=== PATIENT | female | born 1930 | race Caucasian/White ===

== ENCOUNTER 2017-08-17 08:48 | Inpatient (IN) | payer MEDICARE, OTHER ==
[2017-08-17 09:45] LABS: #Eosinphils 0.2 thou/uL (0.0-0.7); #Lymphocytes 1.1 thou/uL (1.20-3.40); #Neutrophils 7.6 thou/uL (1.40-6.50); %Basophils 0.5 % (0.0-1.0); %Eosinophils 1.9 % (0.0-10.0); %Lymphocytes 11.5 % (21.0-51.0); %Monocytes 9.8 % (0.0-10.0); Hematocrit 37.8 % (36.0-47.0); Mean Platelet Volume 7.5 fL (7.4-10.4); Red Blood Cell (RBC) Count 3.97 mill/uL (4.20-5.40)
[2017-08-17] MEDS ORDERED: Acetaminophen 325 MG TAB ONE (09:46)
[2017-08-17 09:51] LABS: PTT 32.6 SEC (22.9-36.1); Prothrombin Time 13.9 SEC (12.0-14.7)
[2017-08-17 10:28] LABS: ALT (SGPT) 14 U/L (8-55); AST (SGOT) 18 U/L (5-34); Alkaline Phosphatase 59 U/L (40-150); Anion Gap 12 mmol/L (10-20); BUN (Urea Nitrogen) 11 mg/dL (9.8-20.1); Bilirubin, Total 0.5 mg/dL (0.2-1.2); CK (CPK) 41 U/L (29-168); Calc. Creatinine Clearance 0 mL/min (70-130); Calcium 9.3 mg/dL (7.8-10.44); Carbon Dioxide 25 mmol/L (23-31); Chloride 103 mmol/L (98-107); Estimated GFR-MDRD 71; Globulin 3.2 g/dL (2.4-3.5); Protein, Total 6.5 g/dL (6.0-8.3)
[2017-08-17 10:32] LABS: Troponin I Less than 0.010 ng/mL (< 0.028)
[2017-08-17] MEDS ORDERED: Morphine Sulfate 2 MG/ML SYRINGE ONE (10:36)
[2017-08-17] MEDS ORDERED: cefTRIAXone\\ROCEPHIN 1 GM VIAL ONE (10:36)
--- NOTE | 2017-08-17 10:50 | RAD ---
2 VIEWS CHEST: Date: 08/17/17 COMPARISON: 11/13/15. HISTORY: Upper respiratory infection and chest pain. FINDINGS: Two views of the chest show normal sized cardiomediastinal silhouette. There is no evidence of conso lidation, mass, or pleural effusion. The bones are unremarkable. IMPRESSION: No evidence of acute cardiopulmonary disease. POS: [facility]
[2017-08-17 10:56] LABS: Bilirubin Negative (Negative); Blood, Urine Negative (Negative); Glucose, Urine (Dipstick) 250 mg/dL (Negative); Ketone, Urine Negative (Negative); Nitrite Negative (Negative); Protein, Urine (Dipstick) Negative (Neg-Trace); Urobilinogen 0.2 mg/dL (0.2-1.0)
[2017-08-17] MEDS ORDERED: Sodium Chloride 0.9% 100 ML ONE (10:57)
[2017-08-17 10:59] LABS: Bacteria/HPF 4+ HPF (None Seen); RBC/HPF 0-3 HPF (0-3); Squamous Epithelial 0-3 HPF (0-3)
[2017-08-17 11:02] LABS: Hyaline Casts/LPF 0-3 HYALINE CAST LPF (0-3 Hyaline)
--- NOTE | 2017-08-17 12:25 | CT ---
CT ANGIOGRAM OF THE CHEST: Date: 08/17/17 COMPARISON: None. HISTORY: 86-year-old female with rib pain and chest pain, low grade fever, with congestion and projective cou gh, assess for pulmonary embolism. TECHNIQUE: Serial axial CT imaging at 2.5 mm intervals from thoracic inlet through upper abdomen with IV contra st using a CT angiogram protocol. Coronal and oblique sagittal 3D reformatted imaging obtained. FINDINGS: No axillary lymphadenopathy. Small pretracheal and subcarinal lymph nodes noted. Evaluation of upper abdomen demonstrates scattered atherosclerotic calcification of the abdominal aorta and its branche s. Cholecystectomy clips noted. Tiny right pleural effusion. No left pleural effusion. No pneumothor ax seen on either side. There is atherosclerotic calcification of the aortic arch and descending thoracic aorta. Scattered coronary arterial calcification noted on the left. No filling defect is seen in the pulmonary arterial trunk or main pulmonary artery on either side. No discrete filling defect is identified within the pulmonary arterial vasculature on either side to suggest the presence of acute pulmonary embolism. There is a focal area of pulmonary parenchymal opacity within the posterior aspect of the right uppe r lobe on image 30, consistent with a focal area of partial consolidation of right upper lobe. Infer ior and lateral to this are reticulonodular opacities involving the right upper lobe. There is an area of focal reticular nodular density noted within the inferior medial aspect of the r ight upper lobe. There is minimal reticular nodular opacity also noted within right lower lobe on im age 80. There is a small peripheral area of focal opacity in the left lung apex posteromedially on image 17. There is a small focal area of peripheral opacity within the superior segment left lower lobe media lly. Osseous structures demonstrate no acute findings. IMPRESSION: 1. No evidence for acute pulmonary embolism. 2. Significant reticular nodular opacity noted in right upper lobe and right middle lobe with christina tional subtle areas of pulmonary parenchymal opacity within the left lung and the right lower lobe. Trace right pleural effusion. Findings are most consistent with infectious pneumonitis. Follow-up im aging of the chest following treatment is recommended to document resolution. POS: [facility]
[2017-08-17] MEDS ORDERED: Loperamide HCl 2 MG CAP PO PRN (13:42)
[2017-08-17] MEDS ORDERED: Ondansetron HCl/PF 4 MG/2 ML Vial IVP PRN (13:42)
[2017-08-17] MEDS ORDERED: cefTRIAXone\\ROCEPHIN 1 GM in Sodium Chloride 0.9% 100 ML IVPB SCH (13:45)
[2017-08-17] MEDS ORDERED: Azithromycin 500 MG in Sodium Chloride 0.9% 250 ML 250 ML IVPB SCH (14:00)
--- NOTE | 2017-08-17 14:04 | PDOC.EVN ---
Event Note - Event Note Event Note: H&P: [id number] #RUL/RML CAP with right-sided pleurisy (began as URI dx'ed oupt 1wk prior to admission with failed outpt PO abx) * Emperic Abx: Ceftriaxone and Azithromycin * Blood cxs * Urine legionella Ag * Urine strep Ag * monitor pulse ox - O2 prn * prn analgesics * check labs in AM #HHT * avoid ASA and NSAIDs #DM * SSI * f/u accu checks #HTN * monitor BP and HR closely #Physical Debility * PT/OT Dispo: Admit to 4th floor.
[2017-08-17] MEDS ORDERED: Dextrose 50% Abboject 50 ML SYRINGE SLOW IVP PRN (14:06)
[2017-08-17] MEDS ORDERED: HumaLOG 300 UNITS/3 ML VIAL SC PRN (14:06)
[2017-08-17] MEDS ORDERED: PROVENTIL INHALER 6.7 G (200 INHALATIONS) INH PRN (14:06)
[2017-08-17] MEDS ORDERED: Dextrose 5% in Water 1,000 ML IV PRN (14:06)
[2017-08-17 14:12] LABS: Troponin I 0.012 ng/mL (< 0.028)
[2017-08-17] MEDS: Acetaminophen 325 MG TAB PO PRN ×2 (15:08→21:04)
[2017-08-17] MEDS: Morphine Sulfate 2 MG/ML SYRINGE SLOW IVP PRN ×2 (16:11→20:55)
[2017-08-17 17:22] LABS: Troponin I 0.022 ng/mL (< 0.028)
[2017-08-17 18:09] LABS: LegU Control Bar Appear? YES (CONTROL BAR); LegionellaU Control Bkground? CLEAR/WHITE (CLR/WHITE); Strp pneuU Control Background? CLEAR/WHITE (CLR/WHITE); Strp pneumo Control Bar Appear YES (CONTROL BAR)
--- NOTE | 2017-08-17 18:24 | HP ---
DATE OF ADMISSION: 08/17/2017 at 1:55 p.m. CHIEF COMPLAINT: Right-sided chest pain. HISTORY OF PRESENT ILLNESS: This is a very pleasant 86-year-old female who presented to her primary care physician a week ago on 08/11/2017 at which time she was diagnosed with an upper respiratory t ract infection for which she was given Z-Surjit. The patient reports that her chest pain worsened over the course of the week and she has had trouble taking a deep breath as this is caused sharp pleurit ic-type pain. She also reports a downs/green cough with a low-grade fever of 99 degrees at home and also complains of congestion. Patient denies any nausea, vomiting, or diaphoresis. PAST MEDICAL HISTORY: 1. Hereditary hemorrhagic telangiectasias. 2. Breast cancer, diagnosed in 2014, on tamoxifen, and status post right-sided mastectomy. 3. Diabetes mellitus. 4. Hyperlipidemia. 5. Hypertension. PAST SURGICAL HISTORY: 1. Appendectomy. 2. Cholecystectomy. 3. Hernia repair. 4. Hysterectomy. 5. Right mastectomy for history of breast cancer. 6. Tonsillectomy. FAMILY HISTORY: Reviewed and noncontributory to the presenting illness. SOCIAL HISTORY: The patient denies any tobacco, alcohol, or illicit drug use. ALLERGIES: Reviewed. Please refer to the chart for details. MEDICATIONS: Reviewed. Please refer to the chart for details. PHYSICAL EXAMINATION: VITAL SIGNS: Temperature 97.6, pulse 85, respirations 24, 95% on room air, blood pressure 134/58. GENERAL: The patient was lying comfortably in bed when I entered the room, in no acute distress. HEENT: Normocephalic, atraumatic. NECK: Supple. No rigidity, no masses. LYMPH NODES: No cervical or supraclavicular lymphadenopathy. CARDIOVASCULAR: S1 and S2 audible with regular rate and rhythm. LUNGS: Notable for right upper lobe and right middle lobe rhonchi and diminished breath sounds at t he bases with no wheezing and symmetric expansion with inhalation. ABDOMEN: Soft, nontender, positive bowel sounds. No guarding, rebound, or rigidity. GENITOURINARY: No CVA tenderness bilaterally. No suprapubic tenderness either. MUSCULOSKELETAL: No calf tenderness bilaterally. EXTREMITIES: No clubbing or cyanosis of the extremities. PSYCHIATRIC: Appropriate, cooperative. NEUROLOGIC: Alert and oriented x3, answering questions appropriately with judgment intact. SKIN: Warm, dry with moist mucous membranes. LABORATORY AND IMAGING: Reviewed. Please refer to the chart for details. ASSESSMENT AND PLAN: This is a very pleasant 86-year-old female, presenting with right pleurisy. 1. Right-sided multilobar pneumonia including the upper and right middle lobe with subsequent pleur itic chest pain and shallow breathing secondary to pain. We will start IV ceftriaxone and azithromy jhonny for community-acquired pneumonia, which has likely progressed from her upper respiratory tract i nfection, which was diagnosed last week with her PCP. We will check urine Legionella and streptococ hue antigens. Check blood cultures and urine culture. We will provide breathing treatment as lamberto cadet. Monitor pulse ox and provide oxygen is necessary. Check labs in the morning. 2. Diabetes mellitus type 2. Start sliding scale insulin. Follow up Accu-Cheks a.c. and at bedtim e. 3. Hypertension. Monitor blood pressure and heart rate closely. 4. History of hereditary hemorrhagic telangiectasia. We will avoid aspirin and NSAIDs. 5. Suspicion for urinary tract infection. We will culture urine as above and empiric antibiotics w ill be started as above. 6. Physical debility. We will consult physical therapy and occupational therapy. 7. Admit to inpatient.
[2017-08-17] MEDS: Famotidine 20 MG TAB PO SCH (20:54)
[2017-08-17] MEDS: Escitalopram Oxalate 10 mg Tablet PO SCH (20:54)
[2017-08-17 23:18] LABS: Troponin I Less than 0.010 ng/mL (< 0.028)
[2017-08-18 05:51] LABS: #Eosinphils 0.2 thou/uL (0.0-0.7); #Lymphocytes 0.9 thou/uL (1.20-3.40); #Monocytes 0.9 thou/uL (0.11-0.59); #Neutrophils 6.1 thou/uL (1.40-6.50); %Basophils 0.5 % (0.0-1.0); %Eosinophils 2.3 % (0.0-10.0); %Lymphocytes 11.2 % (21.0-51.0); Hematocrit 34.9 % (36.0-47.0); Mean Platelet Volume 7.9 fL (7.4-10.4); Red Blood Cell (RBC) Count 3.63 mill/uL (4.20-5.40); White Blood Cell (WBC) Count 8.2 thou/uL (4.8-10.8)
[2017-08-18 06:21] LABS: Anion Gap 10 mmol/L (10-20); BUN (Urea Nitrogen) 9 mg/dL (9.8-20.1); Calc. Creatinine Clearance 61 mL/min (70-130); Calcium 8.5 mg/dL (7.8-10.44); Carbon Dioxide 24 mmol/L (23-31); Chloride 105 mmol/L (98-107); Estimated GFR-MDRD 80; Magnesium 1.7 mg/dL (1.6-2.6)
[2017-08-18] MEDS: Fish Oil 1,000 MG CAP PO SCH (08:21)
[2017-08-18] MEDS: Multivit, Therapeutic 1 TAB PO SCH (08:21)
[2017-08-18] MEDS: Famotidine 20 MG TAB PO SCH ×2 (08:21→20:27)
[2017-08-18] MEDS: Calcium Carbonate 500 MG TAB PO SCH (08:23)
[2017-08-18] MEDS: Glimepiride 4 MG TAB PO SCH (08:24)
[2017-08-18] MEDS: Pioglitazone HCl 15 MG TAB PO SCH (08:24)
[2017-08-18] MEDS ORDERED: Pioglitazone HCl 15 MG TAB PO SCH (09:00)
[2017-08-18] MEDS ORDERED: Enoxaparin Sodium 30 MG/0.3 ML SYRINGE SC SCH (09:00)
[2017-08-18] MEDS ORDERED: HYDROcodone/Acetaminophen 10/325 mg Tablet PO PRN (09:57)
[2017-08-18] MEDS ORDERED: HYDROcodone/Acetaminophen 5/325 mg Tablet PO PRN ×2 (09:57→12:35)
[2017-08-18] MEDS: cefTRIAXone\\ROCEPHIN 1 GM in Sodium Chloride 0.9% 100 ML IVPB SCH (09:57)
[2017-08-18] MEDS ORDERED: HYDROcodone/Acetaminophen 7.5/325 mg Tablet PO PRN (09:58)
[2017-08-18] MEDS: Morphine Sulfate 2 MG/ML SYRINGE SLOW IVP PRN (11:50)
--- NOTE | 2017-08-18 11:59 | PDOC.PN ---
- Subjective Encounter Start Date: 08/18/17 Encounter Start Time: 08:30 -: old records requested/rev Patient seen and examined. No new complaints. No overnight events - Objective MAR Reviewed: Yes Vital Signs & Weight: Vital Signs (12 hours) Temp Pulse Resp BP BP Pulse Ox 08/18/17 11:27 97.9 F 117 H 16 115/69 96 08/18/17 08:00 98.1 F 80 16 93 L 08/18/17 07:20 98.1 F 80 16 136/71 93 L 08/18/17 05:30 98.3 F 99 18 136/74 93 L 08/18/17 00:00 98.1 F 108 H 16 130/70 94 L Weight Weight 144 lb 13.499 oz I&O: 08/17/17 08/18/17 08/19/17 06:59 06:59 06:59 Intake Total 960 Balance 960 Result Diagrams: 08/18/17 05:01 08/18/17 05:01 Additional Labs: Accuchecks 08/18/17 08/18/17 08/17/17 11:25 05:20 22:49 POC Glucose 209 H 160 H 160 H Phys Exam - Physical Examination Constitutional: NAD HEENT: PERRLA, moist MMs, sclera anicteric Neck: no JVD, supple Respiratory: no wheezing, no rales, no rhonchi Cardiovascular: RRR, no significant murmur, no rub Gastrointestinal: soft, non-tender, no distention, positive bowel sounds Musculoskeletal: no edema, pulses present Neurological: non-focal, normal sensation, moves all 4 limbs Lymphatic: no nodes Psychiatric: normal affect, A&O x 3 Skin: no rash, normal turgor Dx/Plan (1) Multifocal pneumonia Code(s): J18.9 - PNEUMONIA, UNSPECIFIED ORGANISM Status: Acute (2) UTI (urinary tract infection) Status: Acute (3) Anxiety and depression Code(s): F41.8 - OTHER SPECIFIED ANXIETY DISORDERS Status: Chronic (4) Diabetes type 2, controlled Code(s): E11.9 - TYPE 2 DIABETES MELLITUS WITHOUT COMPLICATIONS Status: Chronic (5) GERD (gastroesophageal reflux disease) Code(s): K21.9 - GASTRO-ESOPHAGEAL REFLUX DISEASE WITHOUT ESOPHAGITIS Status: Chronic (6) H/O malignant neoplasm of breast Code(s): Z85.3 - PERSONAL HISTORY OF MALIGNANT NEOPLASM OF BREAST Status: Chronic (7) HHT (hereditary hemorrhagic telangiectasia) Code(s): I78.0 - HEREDITARY HEMORRHAGIC TELANGIECTASIA Status: Chronic (8) Hypertension Code(s): I10 - ESSENTIAL (PRIMARY) HYPERTENSION Status: Chronic - Plan cont current plan of care, continue antibiotics * DC Lovenox as she has h/o HHT * continue IV antibiotics for pneumonia, will change to levaquin and continue rocephin * medication reviewed as below * symptomatic treatment. Review of Systems - Review of Systems ENT: negative: Ear Pain, Ear Discharge, Nose Pain, Nose Discharge, Nose Congestion, Mouth Pain, Mouth Swelling, Throat Pain, Throat Swelling, Other Respiratory: negative: Cough, Dry, Shortness of Breath, Hemoptysis, SOB with Excertion, Pleuritic Pain, Sputum, Wheezing Cardiovascular: negative: Chest Pain, Palpitations, Orthopnea, Paroxysmal Noc. Dyspnea, Edema, Light Headedness, Other Gastrointestinal: negative: Nausea, Vomiting, Abdominal Pain, Diarrhea, Constipation, Melena, Hematochezia, Other Genitourinary: negative: Dysuria, Frequency, Incontinence, Hematuria, Retention , Other Musculoskeletal: negative: Neck Pain, Shoulder Pain, Arm Pain, Back Pain, Hand Pain, Leg Pain, Foot Pain, Other - Medications/Allergies Allergies/Adverse Reactions: Allergies Allergy/AdvReac Type Severity Reaction Status Date / Time erythromycin base Allergy Mild Verified 10/20/15 13:08 aspirin Allergy Unknown Verified 10/20/15 13:08 codeine Allergy Unknown Verified 10/20/15 13:08 lidocaine Allergy Unknown Verified 10/20/15 13:08 Sulfa (Sulfonamide Allergy Unknown Verified 10/20/15 13:08 Antibiotics) ELDA Inhibitors Allergy FATIGUE Verified 10/20/15 13:08 epinephrine Allergy Verified 10/20/15 13:08 procaine Allergy Verified 10/20/15 13:08 ANTICOAGULANT Allergy Severe Uncoded 08/17/17 13:06 Medications: Current Medications Hydrocodone Bitart/Acetaminophen ([place] 10/325) 1 tab PO Q4H PRN PRN Reason: Pain Hydrocodone Bitart/Acetaminophen ([place] 5/325) 1 tab PO Q4H PRN PRN Reason: Pain Hydrocodone Bitart/Acetaminophen ([place] 7.5/325) 1 tab PO Q4H PRN PRN Reason: Pain Albuterol Sulfate (Proventil Hfa) 1 puff INH Q4H PRN PRN Reason: SOB &/or Wheezing Albuterol/Ipratropium (Duoneb) 3 ml NEB [id number] PRN PRN Reason: SOB &/or Wheezing Calcium Carbonate (Oscal-500) 500 mg PO DAILY [facility] Last Admin: 08/18/17 08:23 Dose: 500 mg Dextrose/Water (Dextrose 50%) 25 gm SLOW IVP PRN PRN PRN Reason: Hypoglycemia Escitalopram Oxalate (Lexapro) 5 mg PO HS [facility] Last Admin: 08/17/17 20:54 Dose: 5 mg Famotidine (Pepcid) 20 mg PO BID [facility] Last Admin: 08/18/17 08:21 Dose: 20 mg Fish Oil (Fish Oil) 1,000 mg PO DAILY [facility] Last Admin: 08/18/17 08:21 Dose: 1,000 mg Glimepiride (Amaryl) 4 mg PO DAILY [facility] Last Admin: 08/18/17 08:24 Dose: 4 mg Glucagon (Glucagon) 1 mg IM PRN PRN PRN Reason: Hypoglycemia Ceftriaxone Sodium 1 gm/ (Sodium Chloride) 100 mls @ 200 mls/hr IVPB Q24HR [facility] Last Admin: 08/18/17 09:57 Dose: 100 mls Dextrose/Water (D5w) 1,000 mls @ 0 mls/hr IV .Q0M PRN; As Directed PRN Reason: Hypoglycemia Levofloxacin 500 mg/ Device 100 mls @ 100 mls/hr IVPB Q24HR [facility] Last Admin: 08/18/17 08:20 Dose: 100 mls Insulin Human Lispro (Humalog) 0 units SC .MODERATE SLIDING SC PRN PRN Reason: Moderate Correctional Scale Loperamide HCl (Imodium) 2 mg PO PRN PRN PRN Reason: Diarrhea/Loose Stools Morphine Sulfate (Morphine Sulfate) 2 mg SLOW IVP Q4H PRN PRN Reason: Pain Last Admin: 08/18/17 11:50 Dose: 2 mg Multivitamins (Theragran) 1 tab PO DAILY [facility] Last Admin: 08/18/17 08:21 Dose: 1 tab Ondansetron HCl (Zofran) 4 mg IVP Q6H PRN PRN Reason: Nausea/Vomiting Pantoprazole Sodium (Protonix) 40 mg PO HS PRN PRN Reason: Indigestion Pioglitazone HCl (Actos) 20 mg PO DAILY [facility] Last Admin: 08/18/17 08:24 Dose: 20 mg Sodium Chloride (Flush - Normal Saline) 10 ml IVF Q12HR [facility] Last Admin: 08/18/17 10:02 Dose: Not Given Sodium Chloride (Flush - Normal Saline) 10 ml IVF PRN PRN PRN Reason: Saline Flush Last Admin: 08/18/17 11:51 Dose: 10 ml Tamoxifen Citrate (Nolvadex) 20 mg PO DAILY [facility] Last Admin: 08/18/17 08:26 Dose: 20 mg
[2017-08-18] MEDS: Escitalopram Oxalate 10 mg Tablet PO SCH (20:26)
[2017-08-19] MEDS: Morphine Sulfate 2 MG/ML SYRINGE SLOW IVP PRN (01:45)
[2017-08-19 08:29] VITALS: BP 159/79; TEMP 97.9
[2017-08-19] MEDS: Famotidine 20 MG TAB PO SCH (08:52)
[2017-08-19] MEDS: Fish Oil 1,000 MG CAP PO SCH (08:52)
[2017-08-19] MEDS: Multivit, Therapeutic 1 TAB PO SCH (08:53)
[2017-08-19] MEDS: Glimepiride 4 MG TAB PO SCH (08:53)
[2017-08-19] MEDS: Calcium Carbonate 500 MG TAB PO SCH (08:53)
[2017-08-19] MEDS: cefTRIAXone\\ROCEPHIN 1 GM in Sodium Chloride 0.9% 100 ML IVPB SCH (08:54)
[2017-08-19] MEDS: Pioglitazone HCl 15 MG TAB PO SCH (08:58)
--- NOTE | 2017-08-19 10:43 | DIS ---
DATE OF ADMISSION: 08/17/2017 DATE OF DISCHARGE: 08/19/2017 PRIMARY CARE PHYSICIAN: Dr. Govind Davis. DISCHARGE DISPOSITION: Home. PRIMARY DISCHARGE DIAGNOSES: 1. Multifocal community-acquired pneumonia. 2. Urinary tract infection due to Klebsiella. SECONDARY DISCHARGE DIAGNOSES: Anxiety, depression, diabetes type 2, gastroesophageal reflux diseas e, history of malignant neoplasm of breast, hereditary hemorrhagic telangiectasia, hypertension. PRIMARY PROCEDURE/OPERATION: None. RADIOLOGICAL INVESTIGATION: Chest x-ray showed no acute cardiopulmonary process. CT angiogram was negative for PE but showed multifocal infiltration. SIGNIFICANT LABORATORY DATA: WBC 8.2, hemoglobin 11.6, platelet 210. INR 1.1. Sodium 135, potassi um 4.0, BUN 9, creatinine 0.70, calcium 8.5, magnesium 1.7. LFTs normal. Cardiac enzymes negative. Urinalysis suggestive of UTI. Urine Legionella and Streptococcal pneumonia antigen negative. Blo od culture negative. Urine culture grew Klebsiella. DISCHARGE MEDICATIONS: Levaquin 750 mg p.o. daily for 7 more days, Mucinex 600 mg p.o. b.i.d. Cont inue following medications: ProAir HFA 1 or 2 puffs q.4 hourly p.r.n., calcium 500 mg p.o. daily, L exapro 5 mg p.o. daily, Amaryl 4 mg p.o. daily, lansoprazole 15 mg p.o. at bedtime p.r.n., multivita min 1 tablet p.o. daily, fish oil 1000 mg p.o. daily, Actos 30 mg p.o. daily, tamoxifen 20 mg p.o. daily. CONTRAINDICATIONS: None. CODE STATUS: FULL CODE. INPATIENT CONSULTANTS: None. ALLERGIES: ERYTHROMYCIN, ASPIRIN, CODEINE, LIDOCAINE. DISCHARGE PLAN: Post hospital, the patient will follow up with Dr. Govind Davis. At that time, the patient will have repeat chest x-ray upon followup visit. HOSPITAL COURSE: An 86-year-old female with the above-mentioned medical problem, who was admitted b y Dr. Pena. Please see his H\T\P for further details. The patient was having respiratory sympto ms with cough, shortness of breath, and right-sided pleuritic chest pain. Patient never had upper r espiratory infection and she was given Z-JOYA that did not improve her symptoms and that is why durin g this admission, we gave her Rocephin and Levaquin therapy. The patient did have a CT angio, which showed multifocal infiltration, which was consistent with community-acquired pneumonia. Patient al so had UTI, which grew Klebsiella. The patient was given levofloxacin therapy upon discharge. The patient is seen and examined at bedside today. She is on room air. She is asymptomatic. She i s doing very well with therapy. PHYSICAL EXAMINATION: VITAL SIGNS: Currently, temperature 97.9, pulse 82, respiratory rate 20, saturation 92%, blood pres sure 159/79. Weight 144 pounds. GENERAL: The patient is currently alert, awake, no acute distress. HEAD: Normocephalic, atraumatic. LUNGS: Clear to auscultation without any rhonchi or rales. CARDIAC: S1, S2 regular without any murmurs. ABDOMEN: Soft and benign without any tenderness. EXTREMITIES: No edema. NEUROLOGIC: Nonfocal examination. The patient is medically stable for discharge.
== END 2017-08-19 13:34 | disposition home or self-care (01) | DRG 194 ==
LOC: ERS 08:48 → T4-B 11:27
PROVIDERS: ADMIT Hospitalist; ATTEND Hospitalist
DX: J18.9 Pneumonia, unspecified organism (principal); N39.0 Urinary tract infection, site not specified; I78.0 Hereditary hemorrhagic telangiectasia; B96.1 Klebsiella pneumoniae [K. pneumoniae] as the cause of diseases classified elsewhere; I10 Essential (primary) hypertension; C50.919 Malignant neoplasm of unspecified site of unspecified female breast; E11.9 Type 2 diabetes mellitus without complications; E78.5 Hyperlipidemia, unspecified; K21.9 Gastro-esophageal reflux disease without esophagitis; Z79.810 Long term (current) use of selective estrogen receptor modulators (SERMs); F41.8 Other specified anxiety disorders
CPT/HCPCS: 36415; 36416; 71020; 71275; 80048; 80053; 81003; 81015; 82550; 83605; 83735; 84484; 85025; 85610; 85730; 87015; 87040; 87045; 87046; 87077; 87086; 87177; 87186; 87449; 87899; 93005; 96361; 96365; 96375; A4216; G8978-GP-CK; G8979-GP-CJ; G8987-GO-CI; G8988-GO-CI; G8989-GO-CI; J0456; J0696; J1650; J1956; J2270; J7050

== ENCOUNTER 2017-08-21 10:34 | Outpatient (CLI) | payer MEDICARE, OTHER ==
--- NOTE | 2017-08-21 11:58 | RAD ---
TWO VIEW CHEST 08/21/17 COMPARISON: 08/17/17. INDICATION: Recent diagnosis of pneumonia. FINDINGS: The lungs remain hyperinflated with interstitial prominence. There is a newly developed subtle patch y density of the upper lateral right hemithorax within the upper lobe. There is mild blunting of the costophrenic sulci which may relate to small volume pleural fluid or pleural thickening. The cardia c silhouette is stable. Vascular calcification and osseous degenerative change. IMPRESSION: 1. New focal small opacity of the lateral aspect of the right upper lobe may relate to a develo ping area of pneumonia. 2. Mild pleural effusion, evidence by bilateral blunting of the costophrenic sulci. 3. COPD. POS: [facility]
== END 2017-08-21 10:35 | disposition home or self-care (01) ==
LOC: SCSRAD 10:34
PROVIDERS: ATTEND Family Medicine
DX: J18.9 Pneumonia, unspecified organism (principal); J44.9 Chronic obstructive pulmonary disease, unspecified; J90 Pleural effusion, not elsewhere classified; R91.8 Other nonspecific abnormal finding of lung field
CPT/HCPCS: 71020

== ENCOUNTER 2017-09-27 10:19 | Emergency (ER) | payer MEDICARE, OTHER ==
--- NOTE | 2017-09-27 13:33 | RAD ---
FRONTAL AND LATERAL IMAGING OF THE LEFT TIBIA AND FIBULA: DATE: 09/27/17. COMPARISON: None. HISTORY: Fall, trauma, pain. FINDINGS: The bones are demineralized. There is no displaced fracture or evidence of dislocation seen. IMPRESSION: No displaced fracture or dislocation seen. POS: [facility]
--- NOTE | 2017-09-27 13:35 | RAD ---
FOUR VIEWS OF THE LEFT KNEE: DATE: 09/27/17. COMPARISON: None. HISTORY: Recent fall, trauma, pain. FINDINGS: There is chondrocalcinosis of the medial and lateral compartment. No significant knee joint effusion is seen. There is calcification posterior to the left knee joint suggesting atherosclerotic calcification. There is patellofemoral joint space narrowing. There is medial and lateral compartment narrowing. T here is no acute fracture or evidence of dislocation seen. IMPRESSION: No displaced fracture or evidence of dislocation. POS: [facility]
== END 2017-09-27 11:23 | disposition home or self-care (01) ==
LOC: SCSER 10:19
DX: S86.912A Strain of unspecified muscle(s) and tendon(s) at lower leg level, left leg, initial encounter (principal); M17.12 Unilateral primary osteoarthritis, left knee; E11.9 Type 2 diabetes mellitus without complications; E78.5 Hyperlipidemia, unspecified; I10 Essential (primary) hypertension; Z79.899 Other long term (current) drug therapy; W19.XXXA Unspecified fall, initial encounter